=== PATIENT | female | born 1985 | race Caucasian/White ===

== ENCOUNTER 2022-11-03 13:00 | Outpatient (CLI) | payer OTHER | END 2022-11-03 13:07 | disposition home or self-care (01) | LOC: NUCLEAR 13:00 | PROVIDERS: ATTEND Internal Medicine Sports Medicine | DX: C73 Malignant neoplasm of thyroid gland (principal) | CPT/HCPCS: 79005; A9517 ==

== ENCOUNTER 2022-11-10 12:45 | Outpatient (CLI) | payer OTHER | END 2022-11-10 12:49 | disposition home or self-care (01) | LOC: NUCLEAR 12:45 → EDBD 13:00 → NUCLEAR 13:00 | PROVIDERS: ATTEND Internal Medicine Sports Medicine | DX: C73 Malignant neoplasm of thyroid gland (principal) | CPT/HCPCS: 78018; 78020; A9528 ==

== ENCOUNTER 2023-05-27 16:11 | Emergency (ER) | payer OTHER ==
[~2023-05-27] VITALS: Ht 175.3 cm; Wt 83.9 kg
[2023-05-27] MEDS ORDERED: IRON325 MG PO (20:27)
[2023-05-27] MEDS ORDERED: STOOL SOFTENER50 MG PO (20:27)
== END 2023-05-27 21:04 | disposition home or self-care (01) ==
LOC: ER 16:11
DX: J32.9 Chronic sinusitis, unspecified (principal); G44.89 Other headache syndrome; D64.9 Anemia, unspecified; Z20.822 Contact with and (suspected) exposure to COVID-19; E03.8 Other specified hypothyroidism

== ENCOUNTER 2024-01-08 11:20 | Outpatient (CLI) | payer OTHER ==
[~2024-01-08 11:20] MED LIST: IRON325 MG PO; STOOL SOFTENER50 MG PO
== END 2024-01-08 11:21 | disposition home or self-care (01) ==
LOC: NUCLEAR 11:20
PROVIDERS: ATTEND Internal Medicine Sports Medicine
DX: C73 Malignant neoplasm of thyroid gland (principal)